=== PATIENT | male | born 1950 | race Caucasian/White ===

== ENCOUNTER 2017-07-19 21:50 | Emergency (ER) | payer OTHER, BC ==
[~2017-07-19] VITALS: Ht 188 cm; Wt 136.1 kg
[2017-07-19 21:59] VITALS: BP 167/81
[2017-07-19] MEDS ORDERED: PENICILLIN G BENZATHINE LA 1,200,000 UNIT/2 ML DISP.SYRIN. IM ONE (23:00)
--- NOTE | 2017-07-19 23:24 | PHYS DOC ---
Past Medical History Past Medical History: High Cholesterol, Hypertension Past Surgical History: Other Additional Past Surgical Histo: BILAT KNEE, BILAT SHOULDER, BILAT HIP, LUMBAR FUSION Alcohol Use: Rarely Drug Use: None Adult General Chief Complaint Chief Complaint: MECHANICAL FALL HPI HPI Patient is a 66 year old male with a history of hypertension and high cholesterol who presents today with moderate left anterior rib pain and left knee pain after falling. Patient states he was in a bathroom, stepped on a wet floor,and fell forward hitting his left ribs on a counter top. Patient denies any loss of consciousness. He states he has previously fractured his right ribs. Review of Systems Review of Systems Constitutional: Denies fever or chills [] Eyes: Denies change in visual acuity, redness, or eye pain [] HENT: Denies nasal congestion or sore throat [] Respiratory: Left anterior rib pain Denies cough or shortness of breath [] Cardiovascular: No additional information not addressed in HPI [] GI: Denies abdominal pain, nausea, vomiting, bloody stools or diarrhea [] : Denies dysuria or hematuria [] Musculoskeletal: Left knee pain Integument: Denies rash or skin lesions [] Neurologic: Denies headache, focal weakness or sensory changes [] Current Medications Current Medications Current Medications Medications (Trade) Dose Ordered Sig/Flaquita Start Time Stop Time Status Last Admin Dose Admin Acetaminophen/ Hydrocodone Bitart (Lortab 5/325) 2 tab 1X ONCE 07/19/17 23:45 07/19/17 23:46 Penicillin G Benzathine (Bicillin L-A) 1,200,000 unit STK-MED ONCE 07/19/17 23:00 07/19/17 23:01 DC Allergies Allergies Allergies Coded Allergies Type Severity Reaction Last Updated Verified No Known Drug Allergies 07/19/17 No Physical Exam Physical Exam Constitutional: Well developed, well nourished, no acute distress, non-toxic appearance. [] HENT: Normocephalic, atraumatic, bilateral external ears normal, oropharynx moist, no oral exudates, nose normal. [] Eyes: PERRLA, EOMI, conjunctiva normal, no discharge. [] Neck: Normal range of motion, no tenderness, supple, no stridor. [] Cardiovascular:Heart rate regular rhythm, no murmur [] Lungs & Thorax: Bruising noted on the left anterior chest. Tenderness on palpation of the left anterior chest approximately ribs 5 and 6. No crepitus to the area. Bilateral breath sounds clear to auscultation [] Abdomen: Bowel sounds normal, soft, no tenderness, no masses, no pulsatile masses. [] Skin: Warm, dry, no erythema, no rash. [] Back: No tenderness, no CVA tenderness. [] Extremities: Left knee with no obvious deformity. Tenderness on palpation of the left anterior knee. Full range of motion to the left knee including negative Ikm sign and negative Mandy's sign negative anterior-posterior drawer sign. +2 left pedal pulse. Cap refill less than 2 seconds the left toes. Neurologic: Alert and oriented X 3, normal motor function, normal sensory function, no focal deficits noted. [] Psychologic: Affect normal, judgement normal, mood normal. [] Current Patient Data Vital Signs Vital Signs Date Time Temp Pulse Resp B/P (MAP) Pulse Ox O2 Delivery O2 Flow Rate FiO2 07/19/17 21:59 98.4 69 20 98 Room Air 98.4 EKG EKG [] Radiology/Procedures Radiology/Procedures [] Course & Med Decision Making Course & Med Decision Making Pertinent Labs and Imaging studies reviewed. (See chart for details) Patient is in the ED with left anterior rib pain and left knee pain after falling. Left knee x-rays interpreted by Dr. Velasquez are negative for any acute findings. Left rib x-rays including PA chest was noted for rib #5 fracture. Patient was discharged with pain medicine and muscle relaxers. Ice recommended to the areas. Follow-up with his own doctor in 1-2 weeks. Deep breaths recommended every hour. Dragon Disclaimer Dragon Disclaimer This electronic medical record was generated, in whole or in part, using a voice recognition dictation system. Departure Departure Impression: Primary Impression: Fall from standing Additional Impressions: Left rib fracture Contusion of left knee Disposition: 01 HOME, SELF-CARE Condition: STABLE Referrals: CORAZON HIGGINS (PCP) Follow-up with your doctor in 1-2 weeks Patient Instructions: Fall Prevention and Home Safety, Knee Pain, [id number] , Rib Fracture Additional Instructions: You were seen for left rib fracture and left knee contusion after falling. Ice and elevate the affected areas. Take the pain medicine you have at home as needed for pain. Follow up with your own doctor in 1-2 weeks. Scripts Cyclobenzaprine Hcl (CYCLOBENZAPRINE HCL) 10 Mg Tablet 1 TAB PO TID, #30 TAB Prov: LUKASZ ROJAS APRN 07/19/17 Hydrocodone/Apap 5-325 (NORCO 5-325 TABLET) 1 Each Tablet 1-2 TAB PO Q4-6HRS, #14 TAB Prov: LUKASZ ROJAS APRN 07/19/17 Problem Qualifiers Primary Impression: Fall from standing Encounter type: initial encounter Qualified Codes: W19.XXXA - Unspecified fall, initial encounter Additional Impressions: Left rib fracture Encounter type: initial encounter Rib fracture type: single rib Fracture type: closed Qualified Codes: S22.32XA - Fracture of one rib, left side, initial encounter for closed fracture Contusion of left knee Encounter type: initial encounter Qualified Codes: S80.02XA - Contusion of left knee, initial encounter LUKASZ ROJAS APRN Jul 19, 2017 23:24
[2017-07-19] MEDS ORDERED: CYCL10TA2 PO (23:32)
[2017-07-19] MEDS ORDERED: HYDR-971 PO (23:32)
[2017-07-19] MEDS ORDERED: HYDROcodone/APAP 5/325MG 1 TAB TABLET PO ONE (23:45)
--- NOTE | 2017-07-20 08:01 | RAD ---
Left knee, 3 views, 07/19/2017: History: Fall, pain A total knee prosthesis is in place in satisfactory position. There is no radiographic evidence of loosening, infection or fracture. No definite joint effusion is seen. IMPRESSION: 1. A total knee prosthesis is in place. 2. No acute bony abnormality is detected.
--- NOTE | 2017-07-20 08:05 | RAD ---
Left RIBS with chest, 3 views, 07/19/2017: History: Mid rib pain No left rib fracture is identified. There is no evidence of underlying pneumothorax, hemothorax or pulmonary infiltrate. The heart size is normal. Moderate degenerative changes are present in the thoracic spine. Postsurgical changes with instrumentation are evident in the lumbar spine. IMPRESSION: No acute left rib abnormality is detected.
== END 2017-07-19 23:37 | disposition home or self-care (01) ==
LOC: ER 21:50
DX: S22.32XA Fracture of one rib, left side, initial encounter for closed fracture (principal); S80.02XA Contusion of left knee, initial encounter; E78.00 Pure hypercholesterolemia, unspecified; I10 Essential (primary) hypertension; Z98.1 Arthrodesis status
CPT/HCPCS: 71101; 73562; 99284

== ENCOUNTER 2021-08-26 18:34 | Emergency (ER) | payer MEDICARE ==
[~2021-08-26] VITALS: Ht 190.5 cm; Wt 155.0 kg
[~2021-08-26 18:34] MED LIST: CYCL10TA19 PO; HYDR-3164 PO
--- NOTE | 2021-08-26 18:57 | ED.ADGEN ---
Past Medical History Past Medical History: High Cholesterol, Hypertension Past Surgical History: Other Additional Past Surgical Histo: BILAT KNEE, BILAT SHOULDER, BILAT HIP, LUMBAR FUSION Smoking Status: Current Some Day Smoker Alcohol Use: Rarely Drug Use: None General Adult EDM: Chief Complaint: LOSS OF CONSCIOUSNESS HPI: HPI: Patient is a 70 year old male coming in via EMS from a restaurant after a syncopal episode. Patient states that he was sitting at a table eating when he felt a sharp pain in his left orthodox and felt "out of it" and then lost consciousness. Patient states he woke up he had his face and a solid. Per he went limp and had no convulsions or tensing. Patient states he had one episode like this prior about 1 year ago where he passed out and was on the floor for about 10 to 15 minutes. He has a pacemaker due to bradycardia, at that time call his attenuator to review the strip and said there is no abnormalities. Patient states he occasionally gets this severe sharp "ice pick type" pain in his left orthodox but has only had syncopal episodes twice. Patient takes Eliquis for his pacemaker but has not had it for the past 3 days because he ran out. Patient states he also has episodes where he zones out and just stares, he says it only last for a couple of seconds but happens a couple times per week. 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 Review of Systems: Review of Systems: All other systems within normal limits except for as noted in the HPI Current Medications: Current Medications Medications (Trade) Dose Ordered Sig/Flaquita Start Time Stop Time Status Last Admin Dose Admin Lorazepam (Ativan Inj) 1 mg 1X ONCE 08/26/21 20:00 08/26/21 20:01 DC 08/26/21 19:42 1 MG Allergies: Allergies: Allergies Coded Allergies Type Severity Reaction Last Updated Verified No Known Drug Allergies 07/19/17 No Physical Exam: PE: Constitutional: Well developed, well nourished, no acute distress, non-toxic appearance. [] HENT: Normocephalic, atraumatic, bilateral external ears normal, nose normal. No temporal tenderness to palpation [] Eyes: PERRLA, conjunctiva normal, no discharge. [] Neck: No rigidity, supple, no stridor. [] Cardiovascular: Regular rate and rhythm, brisk cap refill [] Lungs & Thorax: Non labored symmetric respirations, no tachypnea or respiratory distress [] Abdomen: Soft, nondistended. Skin: Warm, dry, no erythema, no rash. [] Back: Unremarkable Extremities: No deformities, range of motion grossly intact, no lower extremity edema [] Neurologic: Alert and oriented X 3, no focal deficits noted. No cranial nerve deficit [] Psychologic: Affect normal, judgement normal, mood normal. [] Current Patient Data: Labs: Laboratory Tests Test 08/26/21 19:07 White Blood Count 5.2 x10^3/uL (4.0-11.0) Red Blood Count 4.16 x10^6/uL (4.30-5.70) L Hemoglobin 13.6 g/dL (13.0-17.5) Hematocrit 40.4 % (39.0-53.0) Mean Corpuscular Volume 97 fL (79-100) Mean Corpuscular Hemoglobin 33 pg (25-35) Mean Corpuscular Hemoglobin Concent 34 g/dL (31-37) Red Cell Distribution Width 12.6 % (11.5-14.5) Platelet Count 202 x10^3/uL (140-400) Neutrophils (%) (Auto) 54 % (31-73) Lymphocytes (%) (Auto) 34 % (24-48) Monocytes (%) (Auto) 10 % (0-9) H Eosinophils (%) (Auto) 2 % (0-3) Basophils (%) (Auto) 1 % (0-3) Neutrophils # (Auto) 2.8 x10^3/uL (1.8-7.7) Lymphocytes # (Auto) 1.8 x10^3/uL (1.0-4.8) Monocytes # (Auto) 0.5 x10^3/uL (0.0-1.1) Eosinophils # (Auto) 0.1 x10^3/uL (0.0-0.7) Basophils # (Auto) 0.1 x10^3/uL (0.0-0.2) Sodium Level 141 mmol/L (136-145) Potassium Level 3.7 mmol/L (3.5-5.1) Chloride Level 101 mmol/L (98-107) Carbon Dioxide Level 28 mmol/L (21-32) Anion Gap 12 (6-14) Blood Urea Nitrogen 22 mg/dL (8-26) Creatinine 1.1 mg/dL (0.7-1.3) Estimated GFR (Cockcroft-Gault) 66.6 BUN/Creatinine Ratio 20 (6-20) Glucose Level 92 mg/dL (70-99) Lactic Acid Level 2.2 mmol/L (0.4-2.0) H Calcium Level 8.9 mg/dL (8.5-10.1) Phosphorus Level 3.9 mg/dL (2.6-4.7) Magnesium Level 2.1 mg/dL (1.8-2.4) Total Bilirubin 0.4 mg/dL (0.2-1.0) Aspartate Amino Transferase (AST) 25 U/L (15-37) Alanine Aminotransferase (ALT) 28 U/L (16-63) Alkaline Phosphatase 71 U/L (46-116) Troponin I High Sensitivity 8 ng/L (4-75) MV-Nsl-O-Type Natriuretic Peptide 450 pg/mL (0-124) H Total Protein 6.9 g/dL (6.4-8.2) Albumin 3.1 g/dL (3.4-5.0) L Albumin/Globulin Ratio 0.8 (1.0-1.7) L Laboratory Tests 08/26/21 19:07 Laboratory Tests 08/26/21 19:07 Vital Signs: Vital Signs Date Time Temp Pulse Resp B/P (MAP) Pulse Ox O2 Delivery O2 Flow Rate FiO2 08/26/21 18:41 98.3 85 20 168/94 (118) 99 Room Air 98.3 EKG: EKG: A. fib with a heart rate of 70 bpm, left axis deviation, no ST elevation or depression [] Heart Score: C/O Chest Pain: No HEART Score for Chest Pain: HEART Score for Chest Pain Response (Comments) Value History Slighlty/Non-Suspicious 0 ECG Nonspecific Repolarizatio 1 Age > 65 2 Risk Factors 1 or 2 Risk Factors 1 Troponin < Normal Limit 0 Total 4 Risk Factors: Risk Factors: DM, Current or recent (<one month) smoker, HTN, HLP, family history of CAD, obesity. Risk Scores: Score 0 - 3: 2.5% MACE over next 6 weeks - Discharge Home Score 4 - 6: 20.3% MACE over next 6 weeks - Admit for Clinical Observation Score 7 - 10: 72.7% MACE over next 6 weeks - Early Invasive Strategies Radiology/Procedures: Radiology/Procedures: [facility] [address] [place] [address] IMAGING REPORT Signed PATIENT: FABIANO JOY ACCOUNT: [id number] : 1950 LOCATION: ER AGE: 70 SEX: M EXAM STATUS: REG ER ORD. PHYSICIAN: RAMBO CHAPA MD REASON: left MAO and syncope PROCEDURE: CT HEAD AND CERVICAL SPINE WO CT head without contrast. CT cervical spine without contrast. PQRS statement: CT scans at this facility use dose reduction including either automated exposure control, iterative reconstructions, and /or weight based radiation dosing via mA and kV modification when appropriate to reduce radiation dose to as low as reasonably achievable. HISTORY: Syncope, left-sided headache, pain. CT head findings: No intracranial hemorrhage, mass, hydrocephalus, extra-axial fluid collections or infarction. Orbits, mastoids and bones are unremarkable. IMPRESSION: Normal exam. CT cervical spine findings: Craniocervical junction intact. Cervical vertebral body height and alignment intact. No fracture of the cervical spine. Multilevel cervical disc height loss and disc osteophytes and uncovertebral facet spurring with spinal canal and neural foraminal stenoses. The lung apices and paraspinal tissues are unremarkable. IMPRESSION: No acute osseous injury of the cervical spine. Cervical disc d isease. Electronically signed by: Eli Kong MD (08/26/2021 8:29 PM) [facility] DICTATED and SIGNED BY: ELI KONG MD DATE: 08/26/[id number] 0 [] Course & Med Decision Making: Course & Med Decision Making Patient has a history of claustrophobia and initially refusing any CT scans. Discussed with patient the risks and benefits of CT, patient agreeable to CT without if given Ativan. Patient declines any further imaging with contrast. Work-up unremarkable and patient anxiously. Discussed admission for observation with telemetry monitoring. Patient states he feels better just wants to go ho me and sleep. Discussed return precautions and the follow-up with neurology. Bal Disclaimer: Bal Disclaimer: This electronic medical record was generated, in whole or in part, using a voice recognition dictation system. Departure Departure Impression: Primary Impression: Syncope Disposition: 01 HOME / SELF CARE / HOMELESS Condition: STABLE Referrals: CORAZON HIGGINS (PCP) FABIANO TIRADO MD Patient Instructions: Syncope RAMBO CHAPA MD Aug 26, 2021 18:57
[2021-08-26 19:20] LABS: BASO # 0.1 x10^3/uL (0.0-0.2); BASO % 1 % (0-3); EOS # 0.1 x10^3/uL (0.0-0.7); EOS % 2 % (0-3); HEMATOCRIT 40.4 % (39.0-53.0); HEMOGLOBIN 13.6 g/dL (13.0-17.5); LYMPH # 1.8 x10^3/uL (1.0-4.8); LYMPH % 34 % (24-48); MEAN CORPUSCULAR HEMOGLOBIN 33 pg (25-35); MEAN CORPUSCULAR HGB CONC 34 g/dL (31-37); MEAN CORPUSCULAR VOLUME 97 fL (79-100); MONO # 0.5 x10^3/uL (0.0-1.1); MONO % 10 % (0-9); NEUT # 2.8 x10^3/uL (1.8-7.7); NEUT % 54 % (31-73); PLATELET COUNT 202 x10^3/uL (140-400); RED BLOOD COUNT 4.16 x10^6/uL (4.30-5.70); RED CELL DISTRIBUTION WIDTH 12.6 % (11.5-14.5); WHITE BLOOD COUNT 5.2 x10^3/uL (4.0-11.0)
[2021-08-26 19:32] LABS: CALCIUM 8.9 mg/dL (8.5-10.1); CREATININE 1.1 mg/dL (0.7-1.3); GFR 66.6; POTASSIUM 3.7 mmol/L (3.5-5.1)
[2021-08-26 19:38] LABS: ALBUMIN 3.1 g/dL (3.4-5.0); ALBUMIN/GLOBULIN RATIO 0.8 (1.0-1.7); MAGNESIUM 2.1 mg/dL (1.8-2.4); PHOSPHORUS 3.9 mg/dL (2.6-4.7); TOTAL BILIRUBIN 0.4 mg/dL (0.2-1.0); TOTAL PROTEIN 6.9 g/dL (6.4-8.2)
--- NOTE | 2021-08-26 20:32 | RAD ---
CT head without contrast. CT cervical spine without contrast. PQRS statement: CT scans at this facility use dose reduction including either automated exposure cont rol, iterative reconstructions, and /or weight based radiation dosing via mA and kV modification when appropriate to reduce radiation dose to as low as reasonably achievable. HISTORY: Syncope, left-sided headache, pain. CT head findings: No intracranial hemorrhage, mass, hydrocephalus, extra-axial fluid collections or i nfarction. Orbits, mastoids and bones are unremarkable. IMPRESSION: Normal exam. CT cervical spine findings: Craniocervical junction intact. Cervical vertebral body height and alignm ent intact. No fracture of the cervical spine. Multilevel cervical disc height loss and disc osteophy mario and uncovertebral facet spurring with spinal canal and neural foraminal stenoses. The lung apices and paraspinal tissues are unremarkable. IMPRESSION: No acute osseous injury of the cervical spine. Cervical disc disease. Electronically signed by: Cortes Kong MD (08/26/2021 8:29 PM) [facility]
[2021-08-26 21:48] VITALS: BP 145/90
--- NOTE | 2021-08-27 04:49 | EKG ---
[facility] [address] [place] [address] Test Date: 2021-08-26 Test Time: 18:38:04 Pat Name: FABIANO JOY Department: Room: Gender: M [employer] As[employer]er: : 1950 Requested By: RAMBO CHAPA Order Number: [id number] Reading MD: Salvador Giang Measurements Intervals [place] Rate: 77 P: MT: QRS: -2 QRSD: 98 T: 92 QT: 430 QTc: 489 Interpretive Statements ATRIAL FIBRILLATION LEFTWARD AXIS T ABNORMALITY IN HIGH LATERAL LEADS PROLONGED QT ABNORMAL ECG RI6.02 No previous ECG available for comparison Electronically Signed On 08-29-2021 7:30:06 [employer] by Salvador Giang
== END 2021-08-26 21:45 | disposition home or self-care (01) ==
LOC: ER 18:34
DX: R55 Syncope and collapse (principal); E78.00 Pure hypercholesterolemia, unspecified; I10 Essential (primary) hypertension; F17.200 Nicotine dependence, unspecified, uncomplicated; Z87.820 Personal history of traumatic brain injury
CPT/HCPCS: 36415; 70450; 72125; 80053; 83605; 83735; 83880; 84100; 84484; 85025; 93005; 96374; 99285; J2060